=== PATIENT | female | born 1945 | race Caucasian/White ===

== ENCOUNTER → 2018-07-17 | Outpatient (CLI) | payer MEDICARE ==
--- NOTE | 2018-07-17 12:34 | MR ---
EXAMINATION TYPE: MR brain wo/w con DATE OF EXAM: 07/17/2018 11:27 AM COMPARISON: NONE HISTORY: Memory loss, headaches CONTRAST: Patient received 5.5 mL intravenous Gadavist gadolinium contrast. Multiplanar and multispin-echo imaging of the brain was performed . Pre and post contrast enhanced i mages are obtained. The ventricles, basal cisterns and sulci overlying the cerebral convexities are mildly enlarged. There is evidence of mild periventricular white matter ischemic demyelination. Remote deep white matter insults are also noted. No acute edema is seen on diffusion weighted imaging. There is no evidence for midline shift or mass effect. Focal calcification right cerebellum. Acute intracranial hemorrhage or extra-axial collection is not evident. No enhancing lesions are seen. The paranasal sinuses and mastoid air cells are well-aerated. IMPRESSION: Age-related atrophic and chronic small vessel ischemic change. No acute intracranial process at this time. No enhancing lesions are seen.
== END | disposition home or self-care (01) ==
LOC: RADMRIMAIN 09:33
PROVIDERS: ATTEND Family Medicine
DX: G31.1 Senile degeneration of brain, not elsewhere classified (principal); I67.82 Cerebral ischemia
CPT/HCPCS: 70553

== ENCOUNTER → 2019-07-06 | Outpatient (CLI) | payer MEDICARE ==
--- NOTE | 2019-07-07 04:29 | CT ---
EXAMINATION TYPE: CT angio chest DATE OF EXAM: 07/06/2019 COMPARISON: None HISTORY: 74-year-old female with thoracic aortic aneurysm without rupture TECHNIQUE: Contiguous axial scanning of the chest performed without and with IV Contrast, patient inj ected with 100 mL of Isovue 370. Coronal/sagittal MIP reconstructions performed. 3-D reconstructions generated on a dedicated independent workstation. CT DLP: 342.1 mGycm Automated exposure control for dose reduction was used. FINDINGS: The heart is borderline enlarged without pericardial effusion. Coronary vessel calcifications are pre sent. Aortic root is borderline ectatic at 3.5 cm. Aortic valvular morphology is not adequately assessed du e to motion. There is aneurysm of the ascending aorta up to 5.6 cm on sagittal series. Proximal arch measures 4.3 cm. Mid arch measures 4.0 cm. Mild atherosclerotic arch calcifications with conventional vessel branching anatomy. Distal arch measures 3.0 cm. Upper descending thoracic aorta measures 3.4 cm. Descending thoracic aorta shows prominent tortuosity . Mid descending thoracic aorta measures 3.9 cm. Lower descending thoracic aorta measures 4.2 cm. Aorta at the thoracoabdominal junction measures 4.5 cm. Prominent crescentic mural-based plaque and thrombus is present within the descending thoracic aorta. No thoracic lymphadenopathy. Evaluation of the lungs shows strandy atelectasis at the inferior lingula and anterior right midlung. No consolidation or pleural effusion. Visualized upper abdomen shows no gross abnormality. Bones: Moderate degenerative disc disease throughout the thoracic spine with accentuated mid to lower thoracic kyphosis. IMPRESSION: 1. DIFFUSELY ANEURYSMAL THORACIC AORTA (ASCENDING 5.6 CM AND DESCENDING UP TO 4.2 CM). 2. AORTA AT THE THORACOABDOMINAL JUNCTION MEASURING UP TO 4.5 CM. 3. AORTIC VALVE MORPHOLOGY CAN BE BETTER ASSESSED WITH CARDIAC ECHO. IT IS NOT ACCURATELY ASSESSED ON THE PRESENT STUDY DUE TO CARDIAC MOTION.
== END | disposition home or self-care (01) ==
LOC: RADCTMAIN 15:27
PROVIDERS: ATTEND Internal Medicine Interventional Cardiology
DX: I71.2 Thoracic aortic aneurysm, without rupture (principal)
CPT/HCPCS: 82565; 84520; 71275; 36415; Q9967

== ENCOUNTER → 2019-07-30 | Outpatient (CLI) | payer MEDICARE ==
[2019-07-30 19:02] LABS: Albumin 4.5 g/dL (3.80-4.90); Albumin/Globulin Ratio 1.73 (1.60-3.17); Anion Gap 12.6 mmol/L (4.00-12.00); BUN/Creat Ratio 17.5 Ratio (12.00-20.00); Calcium 10.1 mg/dL (8.7-10.3); Carbon Dioxide 25.4 mmol/L (21.6-31.8); Chol/HDL Ratio 3.62; Globulin 2.6 g/dL (1.6-3.3); Potassium 4.5 mmol/L (3.5-5.5); Total Bilirubin 1.1 mg/dL (0.2-1.2); Total Protein 7.1 g/dL (6.2-8.2)
== END | disposition home or self-care (01) ==
LOC: LABWHC1 12:20
PROVIDERS: ATTEND Internal Medicine Interventional Cardiology
DX: E78.2 Mixed hyperlipidemia (principal); R06.09 Other forms of dyspnea
CPT/HCPCS: 36415; 80053; 80061; 83880

== ENCOUNTER → 2019-08-19 | Outpatient (CLI) | payer MEDICARE | END | disposition home or self-care (01) | LOC: CPPFTMAIN 11:38 | PROVIDERS: ATTEND Internal Medicine | DX: G70.9 Myoneural disorder, unspecified (principal) | CPT/HCPCS: 94060; 94726; 94729 ==

== ENCOUNTER 2019-08-26 09:52 | Observation (INO) | payer MEDICARE ==
[2019-08-26] MEDS ORDERED: ASPIRIN 81 MG PO STA (10:27)
--- NOTE | 2019-08-26 10:36 | ED ---
Chest Pain HPI - General Chief Complaint: Chest Pain Stated Complaint: chest pain Time Seen by Provider: 08/26/19 10:03 Source: patient, EMS, RN notes reviewed Mode of arrival: EMS Limitations: no limitations - History of Present Illness Initial Comments: This is a 74-year-old female presents emergency Department chief complaint of upper abdominal, chest discomfort. Patient states started earlier this morning. Patient denies any current nausea or vomiting. Patient states the pain did not radiate to her back. Patient states that she does not take any current medications. EMS did report that she is very anxious from this chest discomfort. Patient did admit that she called her son who called 911 for her. Patient denies any history of hypertension. Diabetes. Patient states that she feels that she is breathing very rapidly at this time. Patient denies any headache or dizziness. - Related Data Home Medications Medication Instructions Recorded Confirmed No Known Home Medications 08/26/19 08/26/19 Allergies Allergy/AdvReac Type Severity Reaction Status Date / Time methotrexate Allergy Rash/Hives Verified 08/26/19 10:35 Review of Systems ROS Statement: Those systems with pertinent positive or pertinent negative responses have been documented in the HPI. ROS Other: All systems not noted in ROS Statement are negative. Past Medical History Additional Past Medical History / Comment(s): PMR History of Any Multi-Drug Resistant Organisms: None Reported Past Surgical History: Cholecystectomy Past Psychological History: No Psychological Hx Reported Smoking Status: Never smoker Past Alcohol Use History: None Reported Past Drug Use History: None Reported General Exam Limitations: no limitations General appearance: alert, in no apparent distress Head exam: Present: atraumatic, normocephalic, normal inspection Eye exam: Present: normal appearance, PERRL, EOMI. Absent: scleral icterus, c onjunctival injection, periorbital swelling ENT exam: Present: normal exam, normal oropharynx, mucous membranes moist, TM's normal bilaterally Neck exam: Present: normal inspection, full ROM. Absent: tenderness, meningismus, lymphadenopathy Respiratory exam: Present: normal lung sounds bilaterally. Absent: respiratory distress, wheezes, rales, rhonchi, stridor Cardiovascular Exam: Present: regular rate, normal rhythm, normal heart sounds. Absent: systolic murmur, diastolic murmur, rubs, gallop, clicks GI/Abdominal exam: Present: soft, tenderness (Mild epigastric), normal bowel sounds. Absent: distended, guarding, rebound, rigid Neurological exam: Present: alert, oriented X3 Psychiatric exam: Present: anxious Skin exam: Present: warm, dry, intact, normal color. Absent: rash Course Vital Signs 08/26/19 08/26/19 09:57 10:05 Temperature 97.8 F Pulse Rate 62 Pulse Rate [ 62 [employer] ] Respiratory 20 Rate Blood Pressure 136/100 O2 Sat by Pulse 99 Oximetry Chest Pain MDM - [facility] Labs EKG and chest x-ray reviewed. Chest x-ray showed possible aneurysm which she had a known aneurysm CT was repeated which shows mild dilation with no rupture. Patiently will be kept for observation for repeat cardiac enzymes and further evaluation Disposition Clinical Impression: Chest pain Disposition: ADMITTED IP TO THIS HOSP Condition: Fair Referrals: Jaky Benitez MD [Primary Care Provider] - 1-2 days
[2019-08-26 10:38] LABS: Basophils # (A) 0.1 k/uL (0-0.2); Basophils % (A) 1 %; Eosinophils # (A) 0.2 k/uL (0-0.7); Eosinophils % (A) 3 %; HCT 42.9 % (34.0-46.0); HGB 14.4 gm/dL (11.4-16.0); Lymphocytes # (A) 2.9 k/uL (1.0-4.8); Lymphocytes % (A) 44 %; MCH 31.4 pg (25.0-35.0); MCHC 33.5 g/dL (31.0-37.0); MCV 93.5 fL (80.0-100.0); Mean Platelet Volume 7.6; Monocytes # (A) 0.5 k/uL (0-1.0); Monocytes % (A) 8 %; Neutrophils # (A) 2.7 k/uL (1.3-7.7); Neutrophils % (A) 41 %; Platelet Count 164 k/uL (150-450); RBC 4.59 m/uL (3.80-5.40); WBC 6.7 k/uL (3.8-10.6)
[2019-08-26 10:49] LABS: Prothrombin Time 10.3 sec (9.0-12.0)
[2019-08-26 11:01] LABS: ALT 13 U/L (9-52); AST 28 U/L (14-36); African American GFR (CKD) >90 (>60 ml/min/1.73 sqM); Albumin 4.1 g/dL (3.5-5.0); Alkaline Phosphatase 133 U/L (38-126); Anion Gap 13 mmol/L; Blood Urea Nitrogen 11 mg/dL (7-17); Carbon Dioxide 21 mmol/L (22-30); Chloride 105 mmol/L (98-107); Glucose 106 mg/dL (74-99); Magnesium 1.8 mg/dL (1.6-2.3); Non-African American GFR(CKD) 81 (>60 ml/min/1.73 sqM); Potassium 4.1 mmol/L (3.5-5.1); Sodium 139 mmol/L (137-145); Total Bilirubin 1.2 mg/dL (0.2-1.3); Total Protein 7.6 g/dL (6.3-8.2)
--- NOTE | 2019-08-26 11:52 | XR ---
EXAMINATION TYPE: XR chest 2V DATE OF EXAM: 08/26/2019 COMPARISON: 03/04/2016 TECHNIQUE: PA and lateral views submitted. HISTORY: Chest pain FINDINGS: The lungs are clear and there is no pneumothorax, pleural effusion, or focal pneumonia. Hyperinflati on and cardiomegaly. There is ectasia of the thoracic aorta with atherosclerotic changes. No overt fa ilure. Degenerative change of the vertebral column. Mild hyperinflation. IMPRESSION: 1. Cardiomegaly with prominence of the thoracic aorta correlate for aneurysm...
--- NOTE | 2019-08-26 13:37 | CT ---
EXAMINATION TYPE: CT angio thor/abd pel aorta DATE OF EXAM: 08/26/2019 COMPARISON: Chest x-ray same date, CT angiogram 07/06/2019 HISTORY: Short of breath and lower rib pain CT DLP: 900.3 mGycm. Automated Exposure Control for Dose Reduction was Utilized. CONTRAST: CT scan of the thorax, abdomen and pelvis is performed without and with IV Contrast, patient injected with 100 mL of Isovue 370. Three-dimensional reconstructions performed on an alternate workstation. FINDINGS: LUNGS: The lungs are grossly clear, there is no concerning parenchymal mass or nodule identified. T here is no pleural effusion or pneumothorax seen. The tracheobronchial tree is patent. MEDIASTINUM: There are no greater than 1 cm hilar or mediastinal lymph nodes. No pericardial effusi on is seen. Pulmonary artery shows normal dimensions. No evident filling defect to suggest pulmonary embolism. There are coronary artery calcifications present. Aorta: Again noted is aneurysmal dilation of the ascending aorta measuring approximately 5.6 cm in gr eatest dimension. There is no evident dissection. There is eccentric plaque present within the descen ding aorta, proximal descending aorta measures approximately 3.4 cm. At the level of the hiatus the a neurysm measures approximately 4.7 cm. The celiac axis, superior mesenteric artery, bilateral renal a rteries are patent. Inferior mesenteric artery is patent, common iliac, internal and external iliac a rteries are patent, common femoral, proximal deep and superficial femoral arteries are patent. Super aortic branch vessels are patent. Left subclavian, innominate, left common carotid, right common hanson tid arteries are patent. LIVER/GB: No significant interval change is appreciated. Gallbladder is not seen. PANCREAS: No significant abnormality is seen. SPLEEN: No significant abnormality is seen. ADRENALS: No significant abnormality is seen. KIDNEYS: No significant abnormality is seen. BOWEL: No significant abnormality is seen. GENITAL ORGANS: No gross abnormality seen. LYMPH NODES: No greater than 1cm abdominal or pelvic lymph nodes are appreciated. OSSEOUS STRUCTURES: No significant abnormality is seen. OTHER: No significant additional abnormality is seen. IMPRESSION: Slight interval increase in size in the ascending aortic aneurysm.
[2019-08-26] MEDS ORDERED: HEPARIN SODIUM,PORCINE 5,000 UNIT/ML 1 ML VIAL IV ONE (13:48)
[2019-08-26] MEDS ORDERED: NITROGLYCERIN SL TABS 0.4 MG TAB SUBLINGUAL PRN (13:48)
[2019-08-26] MEDS ORDERED: HEPARIN SOD,PORK IN 0.45% NACL 25,000 UNIT in 0.45% NACL 1 250ML.BAG IV SCH (14:00)
[2019-08-26] MEDS ORDERED: ACETAMINOPHEN TAB 325 MG TAB PO PRN (14:22)
[2019-08-26] MEDS ORDERED: ONDANSETRON 4 MG/2 ML VIAL IVP PRN (14:22)
[2019-08-26 15:05] VITALS: RESP 18
--- NOTE | 2019-08-26 15:19 | P.HPIM ---
History of Present Illness H&P Date: 08/26/19 This is a 74-year-old female patient of Dr. Benitez. Patient presented with complaints of chest pain. Patient reports that the pain came on suddenly and will correct throughout the night. Patient reports that pain is across her rib cage. Patient reports that this pain has been intermittently occurring over the past month. Patient reports that her recently age now lives by herself which has increased her anxiety. Patient denies any associated nausea vomiting diarrhea or diaphoresis. Patient does have past medical history of cholecystectomy. Patient denies any cardiac history. Patient denies and smoking history. Patient denies any family history of cardiac disease. Chest x-ray completed showing cardiomegaly with prominence of the thoracic aorta correlate for aneurysm. CTA completed showing slight interval increase in size in the ascending aortic aneurysm. Patient started on heparin drip. Cardiology services have been consulted. At this time patient is having mild chest discomfort. Patient denies nausea vomiting or diarrhea. Patient denies any urinary burning or frequency. Review of Systems please refer to HPI otherwise unremarkable Past Medical History Additional Past Medical History / Comment(s): PMR History of Any Multi-Drug Resistant Organisms: None Reported Past Surgical History: Cholecystectomy Past Psychological History: No Psychological Hx Reported Smoking Status: Never smoker Past Alcohol Use History: None Reported Past Drug Use History: None Reported Medications and Allergies Home Medications Medication Instructions Recorded Confirmed Type No Known Home Medications 08/26/19 08/26/19 History Allergies Allergy/AdvReac Type Severity Reaction Status Date / Time methotrexate Allergy Rash/Hives Verified 08/26/19 10:35 Physical Exam Vitals: Vital Signs Temp Pulse Pulse Resp BP Pulse Ox 08/26/19 12:05 85 18 111/64 96 08/26/19 10:05 62 08/26/19 09:57 97.8 F 62 20 136/100 99 Intake and Output 08/25/19 08/26/19 08/26/19 22:59 06:59 14:59 Other: Weight 56.699 kg Head normocephalic Neck supple Lungs clear to auscultation bilaterally no wheezing or crackles Heart regular rate and rhythm S1-S2, no rub or gallop Abdomen is soft nontender nondistended positive bowel sounds no hepatosplenomegaly Extremities no edema Neuro alert and orientated to 3 Results CBC & Chem 7: 08/26/19 10:10 08/26/19 10:10 Labs: Abnormal Lab Results - Last 24 Hours (Table) 08/26/19 Range/Units 10:10 Carbon Dioxide 21 L (22-30) mmol/L Glucose 106 H (74-99) mg/dL Alkaline Phosphatase 133 H (38-126) U/L Assessment and Plan Assessment: 1. Chest pain. Thoracic aorta CT completed showing slight interval increase in the size of the ascending aortic aneurysm Initial troponin negative EKG completed showing sinus bradycardia incomplete right bundle branch block. Patient started on heparin drip serial troponins ordered cardiology service is consulted. 2. History of cholecystectomy. DVT prophylaxis heparin drip. GI prophylaxis Pepcid Time with Patient: Greater than 30 (Greater than 60% of the total time spent in counseling and coordination of care. I performed an examination of the patient and discussed their management with the Nurse Practitioner. I have reviewed the Nurse Practitioner's notes and agree with the documented findings and plan of care)
[2019-08-26] MEDS ORDERED: PNEUMOCOCCAL VACC-PNEUMOVAX 23 25 MCG/0.5 ML VIAL IM ONE (16:13)
[2019-08-27 06:17] LABS: Basophils # (A) 0.1 k/uL (0-0.2); Basophils % (A) 1 %; Eosinophils # (A) 0.2 k/uL (0-0.7); Eosinophils % (A) 5 %; HCT 41.8 % (34.0-46.0); HGB 13.8 gm/dL (11.4-16.0); Lymphocytes # (A) 1.5 k/uL (1.0-4.8); Lymphocytes % (A) 29 %; MCH 31.6 pg (25.0-35.0); MCV 95.6 fL (80.0-100.0); Mean Platelet Volume 6.9; Monocytes # (A) 0.6 k/uL (0-1.0); Monocytes % (A) 11 %; Neutrophils # (A) 2.8 k/uL (1.3-7.7); Neutrophils % (A) 53 %; Platelet Count 175 k/uL (150-450); RBC 4.38 m/uL (3.80-5.40); WBC 5.3 k/uL (3.8-10.6)
[2019-08-27 07:06] LABS: ALT 18 U/L (9-52); AST 26 U/L (14-36); African American GFR (CKD) >90 (>60 ml/min/1.73 sqM); Albumin 3.4 g/dL (3.5-5.0); Alkaline Phosphatase 101 U/L (38-126); Anion Gap 8 mmol/L; Blood Urea Nitrogen 11 mg/dL (7-17); Calcium 9.2 mg/dL (8.4-10.2); Carbon Dioxide 23 mmol/L (22-30); Chloride 109 mmol/L (98-107); Cholesterol 173 mg/dL (<200); Glucose 89 mg/dL (74-99); HDL Cholesterol 63 mg/dL (40-60); LDL Cholesterol,Calculated 98 mg/dL (0-99); Non-African American GFR(CKD) 86 (>60 ml/min/1.73 sqM); Potassium 3.9 mmol/L (3.5-5.1); Sodium 140 mmol/L (137-145); Total Bilirubin 1.1 mg/dL (0.2-1.3); Total Protein 6.7 g/dL (6.3-8.2); Triglycerides 62 mg/dL (<150)
[2019-08-27] MEDS ORDERED: FAMOTIDINE 20 MG TAB PO SCH (09:00)
[2019-08-27] MEDS ORDERED: ASPIRIN 325 MG TAB PO SCH (09:00)
[2019-08-27 11:59] VITALS: BP 121/66; PULSE 58; TEMP 97.4
--- NOTE | 2019-08-27 12:43 | P.CRDCN ---
History of Present Illness History of present illness: This is a pleasant 74 showed female past medical history significant for ascending aortic aneurysm, dyslipidemia and cholecystectomy. She follows in the office with Dr. Landrum. We've been asked to see her in consultation secondary to chest discomfort. She presented to the hospital with symptoms of chest discomfort. She is somewhat of a poor historian at times regarding the si tuation. Information is obtained from the medical record. She states yesterday while at home she felt a tight squeezing sensation around her upper torso and rib cage. She felt like something was squeezing her. She denies associated shortness of breath, dizziness or palpitations. She is seen and examined resting comfortably in bed in no acute distress. She denies active chest discomfort. EMS brought her to the hospital. She currently is living alone since her [place] [facility]. She saw Dr. Landrum in June and underwent Lexiscan stress test and echocardiography that were both unremarkable. Given her history of aortic aneurysm he suggested she see CV surgery and also a pulmonary evaluation as her symptoms were not suggestive of underlying CAD. She saw Dr. Villarreal 08/13 regarding her aortic aneurysm. His plan is to do a follow-up computed tomography scan in 6 months. She also recently underwent pulmonary testing with Dr. Aguero revealing a reduced MVV in the absence of significant airway obstructing suggesting the presence of a neuromusc ular disease. EKG reveals sinus bradycardia rate of 57, incomplete right bundle branch block, left anterior fascicular block and poor R-wave progression. Chest x-ray reveals cardiomegaly with prominence of the thoracic aorta. CT of the thoracic aorta reveals slight interval increase in size of the ascending aortic aneurysm from 5.4-5.6 cm. Laboratory data reviewed, CBC unremarkable, sodium 140, potassium 3.9, creatinine 0.67, magnesium 1.8, cardiac enzymes negative 3, alkaline phosphate 133, LDL 98. Current cardiac medications include aspirin 81 mg daily. At the time of my exam: CONSTITUTIONAL: Denies fever. Denies chills. EYES: Denies blurred vision. Denies vision changes. Denies eye pain. EARS, NOSE, MOUTH & THROAT: Denies headache. Denies sore throat. Denies ear pain. CARDIOVASCULAR: Denies chest pain. Denies shortness of breath. Denies orthopnea. Denies PND. Denies palpitations. RESPIRATORY: Denies cough. GASTROINTESTINAL: Denies abdominal pain. Denies diarrhea. Denies constipation. Denies nausea. Denies vomiting. MUSCULOSKELETAL: Denies myalgias. INTEGUMENTARY: Denies pruitis. Denies rash. NEUROLOGIC: Denies numbness. Denies tingling. Denies weakness. PSYCHIATRIC: Denies anxiety. Denies depression. ENDOCRINE: Denies fatigue. Denies weight change. Denies polydipsia. Denies polyurina. GENITOURINARY: Denies burning, hematuria or urgency with micturation. HEMATOLOGIC: Denies history of anemia. Denies bleeding. Blood pressure 121/66 heart rate 58 afebrile maintaining oxygen saturation on room air GENERAL: This is a 74-year-old female in no apparent distress at the time of my examination. HEENT: Head is atraumatic, normocephalic. Pupils are equal, round. Sclerae anicteric. Conjunctivae are clear. Mucous membranes of the mouth are moist. Neck is supple. There is no jugular venous distention. No carotid bruit is heard. LUNGS: Clear to auscultation no wheezes, rales or rhonchi. No chest wall tenderness is noted on palpation or with deep breathing. HEART: Regular rate and rhythm without murmurs, rubs or gallops. S1 and S2 heard. ABDOMEN: Soft, nontender. Bowel sounds are heard. No organomegaly noted. EXTREMITIES: No evidence of peripheral edema and no calf tenderness noted. Left lower extremity erythema and scabbing noted. VASCULAR: Radial and dorsalis pedis pulses palpated, no evidence of clubbing. NEUROLOGIC: Patient is awake, alert and oriented to self, confused about where she is and why she is here. ASSESSMENT Chest pain, atypical. Difficult to obtain accurate story of the events. An acute event has been ruled out. History of stable aortic ascending aneurysm. Following with Dr. Villarreal. Dyslipidemia PLAN Recent normal stress test in the office. Resume aspirin 81 mg daily and initiate on atorvastatin 40 mg daily. No further cardiac work-up at this time. Follow up in the office with Dr. Landrum upon discharge. Living situation should be discussed with family per PCP. Thank you kindly for this consultation. Nurse Practitioner note has been reviewed, I agree with a documented findings and plan of care. Patient was seen and examined. Past Medical History Past Medical History: Chest Pain / Angina, Hyperlipidemia, Myocardial Infarction (MN), Vascular Disorder Additional Past Medical History / Comment(s): Pt states she had a MN in 1986, ascending aortic aneurysm, varicosities. Last Myocardial Infarction Date:: 1986? History of Any Multi-Drug Resistant Organisms: None Reported Past Surgical History: Cholecystectomy, Heart Catheterization Additional Past Surgical History / Comment(s): Open cholecystectomy, 2006 cardiac cath-normal. Past Anesthesia/Blood Transfusion Reactions: No Reported Reaction Smoking Status: Never smoker - Past Family History Father History Unknown: Yes Family Medical History: Unable to Obtain Additional Family Medical History / Comment(s): Pt was adopted Mother History Unknown: Yes Family Medical History: Unable to Obtain Additional Family Medical History / Comment(s): Pt was adopted. Medications and Allergies Home Medications Medication Instructions Recorded Confirmed Type No Known Home Medications 08/26/19 08/26/19 History Allergies Allergy/AdvReac Type Severity Reaction Status Date / Time methotrexate Allergy Rash/Hives Verified 08/26/19 10:35 Physical Exam Vitals: Vital Signs Temp Pulse Pulse Resp BP BP Pulse Ox 08/27/19 11:58 97.4 F L 58 L 18 121/66 99 08/27/19 07:30 97.6 F 66 18 137/85 98 08/27/19 03:28 98.1 F 52 L 18 155/78 100 08/27/19 00:00 65 18 08/26/19 23:58 97.6 F 65 18 121/70 98 08/26/19 20:00 62 18 08/26/19 19:33 98.0 F 62 18 151/69 99 08/26/19 17:36 98 08/26/19 15:04 97.4 F L 76 18 117/66 98 08/26/19 14:46 81 16 120/86 98 Intake and Output 08/26/19 08/27/19 08/27/19 22:59 06:59 14:59 Intake Total 20.4 Balance 20.4 Intake: Intake, IV Titration 20.4 Amount Heparin Sod,Pork in 0.45% 20.4 NaCl 25,000 unit In 0.45 % NaCl 1 250ml.bag @ 12 UNITS/KG/HR 6.804 mls/hr IV .Q24H [facility] Rx#: [id number] Other: Voiding Method Toilet Toilet Toilet # Voids 1 1 Results 08/27/19 06:05 08/27/19 06:05 Cardiac Enzymes 08/26/19 08/26/19 08/27/19 Range/Units 16:23 23:07 06:05 AST 26 (14-36) U/L Troponin I <0.012 0.012 (0.000-0.034) ng/mL Coagulation 08/26/19 08/27/19 Range/Units 23:07 06:05 APTT 75.6 H 78.4 H (22.0-30.0) sec Lipids 08/27/19 Range/Units 06:05 Triglycerides 62 (<150) mg/dL Cholesterol 173 (<200) mg/dL HDL Cholesterol 63 H (40-60) mg/dL CBC 08/27/19 Range/Units 06:05 WBC 5.3 (3.8-10.6) k/uL RBC 4.38 (3.80-5.40) m/uL Hgb 13.8 (11.4-16.0) gm/dL Hct 41.8 (34.0-46.0) % Plt Count 175 (150-450) k/uL Comprehensive Metabolic Panel 08/27/19 Range/Units 06:05 Sodium 140 (137-145) mmol/L Potassium 3.9 (3.5-5.1) mmol/L Chloride 109 H (98-107) mmol/L Carbon Dioxide 23 (22-30) mmol/L BUN 11 (7-17) mg/dL Creatinine 0.67 (0.52-1.04) mg/dL Glucose 89 (74-99) mg/dL Calcium 9.2 (8.4-10.2) mg/dL AST 26 (14-36) U/L ALT 18 (9-52) U/L Alkaline Phosphatase 101 (38-126) U/L Total Protein 6.7 (6.3-8.2) g/dL Albumin 3.4 L (3.5-5.0) g/dL Current Medications Generic Name Dose Route Start Last Admin Trade Name Freq PRN Reason Stop Dose Admin Acetaminophen 650 mg 08/26/19 14:22 Tylenol Tab PO Q6HR PRN Fever and/ or Pain Aspirin 81 mg 08/28/19 09:00 Aspirin PO DAILY S[facility]A Atorvastatin Calcium 20 mg 08/27/19 21:00 Lipitor PO HS [facility] Famotidine 20 mg 08/27/19 09:00 08/27/19 11:41 Pepcid PO Not Given DAILY [facility] Nitroglycerin 0.4 mg 08/26/19 13:48 Nitrostat SUBLINGUAL Q5M PRN Chest Pain Ondansetron HCl 4 mg 08/26/19 14:22 Zofran IVP Q6HR PRN Vomiting Intake and Output 08/26/19 08/27/19 08/27/19 22:59 06:59 14:59 Intake Total 20.4 Balance 20.4 Intake: Intake, IV Titration 20.4 Amount Heparin Sod,Pork in 0.45% 20.4 NaCl 25,000 unit In 0.45 % NaCl 1 250ml.bag @ 12 UNITS/KG/HR 6.804 mls/hr IV .Q24H [facility] Rx#: [id number] Other: Voiding Method Toilet Toilet Toilet # Voids 1 1 08/27/19 06:05 08/27/19 06:05
--- NOTE | 2019-08-27 13:44 | P.DS ---
Providers Date of admission: 08/26/19 13:42 Expected date of discharge: 08/27/19 Attending physician: Chata Iglesias Consults: 08/26/19 13:51 Consult Physician Urgent Consulting Provider: Dena Landrum Consult Reason/Comments: chest pain Do you want consulting provider notified?: Yes Primary care physician: Jaky Benitez Hospital Course: Discharge Diagnosis 1. Chest pain. Initial troponin negative EKG completed showing sinus bradycardia incomplete right bundle branch block. Patient started on heparin drip serial troponins ordered cardiology service is consulted. Per cardiology lab work unremarkable, cardiac enzymes negative 3, recent stress test completed in office in June. No further cardiac workup at this time. Patient has been cleared by cardiology. Per cardiology initiate statin and aspirin 81 mg. Follow up with Dr. Landrum on upon discharge. 2. Ascending aortic aneurysm. Per cardiology Thoracic aorta CT completed showing slight interval increase in the size of the ascending aortic aneurysm from 5.4-5.6 cm. Follow-up with Dr. Villarreal outpatient, per cardiology note his plan is to do a follow-up computed tomography scan in 6 months. 3. History of cholecystectomy. 4. Hyperlipidemia. Patient initiated on statin Hospital Course This is a 74-year-old female patient of Dr. Benitez. Patient presented with complaints of chest pain. Patient reports that the pain came on suddenly and will correct throughout the night. Patient reports that pain is across her rib cage. Patient reports that this pain has been intermittently occurring over the past month. Patient reports that her recently age now lives by herself which has increased her anxiety. Patient denies any associated nausea vomiting diarrhea or diaphoresis. Patient does have past medical history of cholecystectomy. Patient denies any cardiac history. Patient denies and smoking history. Patient denies any family history of cardiac disease. Chest x-ray completed showing cardiomegaly with prominence of the thoracic aorta correlate for aneurysm. CTA completed showing slight interval increase in size in the ascending aortic aneurysm. Patient started on heparin drip. Cardiology services have been consulted. At this time patient is having mild chest discomfort. Patient denies nausea vomiting or diarrhea. Patient denies any urinary burning or frequency. On 08/27/2019 patient is alert and oriented 3. Patient stated that pain across her rib cage has improved. Nurse mentioned patient had an episode of confusion over night, however, patient's family states that this has happened in the past. Patient is neurologically intact. Patient is very eager to go home. Patient denies any shortness of breath, dizziness, nausea vomiting, difficulty urinating, burning, frequency Patient has been cleared by cardiology and will be discharged. I performed an examination of the patient and discussed their management with the Nurse Practitioner. I have reviewed the Nurse Practitioner's notes and agree with the documented findings and plan of care Patient Condition at Discharge: Stable Plan - Discharge Summary Discharge Rx Participant: No New Discharge Prescriptions: New Aspirin 81 mg PO DAILY 30 Days #30 chew Atorvastatin [Lipitor] 20 mg PO HS 30 Days #30 tab Discharge Medication List Aspirin 81 mg PO DAILY 30 Days #30 chew 08/27/19 [Rx] Atorvastatin [Lipitor] 20 mg PO HS 30 Days #30 tab 08/27/19 [Rx] Follow up Appointment(s)/Referral(s): Dena Landrum MD [STAFF PHYSICIAN] - 2 Weeks Jaky Benitez MD [Primary Care Provider] - 1-2 days Jez Villarreal MD [STAFF PHYSICIAN] - 1 Week
[2019-08-27] MEDS ORDERED: ATORVASTATIN 20 MG TAB PO SCH (21:00)
[2019-08-28] MEDS ORDERED: ASPIRIN 81 MG PO SCH (09:00)
== END 2019-08-27 13:50 | disposition home or self-care (01) ==
LOC: EC 09:52 → 1SOBS 13:42
PROVIDERS: ADMIT Internal Medicine; ATTEND Internal Medicine
DX: R07.89 Other chest pain (principal); I71.2 Thoracic aortic aneurysm, without rupture; M35.3 Polymyalgia rheumatica; I51.7 Cardiomegaly; I45.10 Unspecified right bundle-branch block; R00.1 Bradycardia, unspecified; E78.5 Hyperlipidemia, unspecified; I44.4 Left anterior fascicular block; F41.9 Anxiety disorder, unspecified; Z79.82 Long term (current) use of aspirin; Z88.8 Allergy status to other drugs, medicaments and biological substances; Z90.49 Acquired absence of other specified parts of digestive tract; I25.2 Old myocardial infarction; Z63.4 Disappearance and death of family member
CPT/HCPCS: 93005 ×2; 96366 ×2; 96376; 96365; 99285; 36415; 80061; 80053 ×2; 83690; 83735; 84484; 85025 ×2; 85610; 85730 ×2; 71046; 71275; 74174; G0378 ×2; J1644 ×2; Q9967